=== PATIENT | male | born 1960 | race Caucasian/White ===

== ENCOUNTER → 2016-11-09 | Outpatient (CLI) | payer OTHER ==
[~2016-11-09] MED LIST: CLEOCIN300 MG PO
== END | disposition home or self-care (01) ==
LOC: RAD 09:18
DX: M17.0 Bilateral primary osteoarthritis of knee (principal); M11.262 Other chondrocalcinosis, left knee; M11.261 Other chondrocalcinosis, right knee
CPT/HCPCS: 72100; 73560

== ENCOUNTER 2017-01-19 08:08 | Emergency (ER) | payer OTHER ==
[~2017-01-19] VITALS: Ht 162.6 cm; Wt 93.3 kg
[2017-01-19 08:42] LABS: ADD MIUA? YES; BILIRUBIN NEGATIVE; BLOOD LARGE; COLOR YELLOW ((YELLOW)); GLUCOSE (STRIP) >=500; KETONES NEGATIVE; LEUKOCYTES NEGATIVE; NITRITE NEGATIVE; PROTEIN (STRIP) 30; SPECIFIC GRAVITY 1.012 (1.000-1.030); UROBILINOGEN 0.2 MG/DL (0.2-1.0)
[2017-01-19 08:56] LABS: HEMATOCRIT 37.2 % (38.0-50.0); MCH 30.2 PG (29.0-34.0); MEAN PLAT.VOLUME 10.9 uM^3 (9.0-12.4); PLATELET COUNT 184 K/uL (156-360); RBC DIS.WIDTH-CV 12.3 % (11.8-14.6); RBC DIS.WIDTH-SD 37.8 % (39-53); RED BLOOD COUNT 4.43 M/uL (4.00-5.50); WHITE BLOOD COUNT 7.1 K/uL (4.1-10.2)
[2017-01-19 09:05] LABS: BACTERIA RARE /HPF; EPITHELIAL CELLS NONE SEEN /HPF; HYALINE CASTS 0-5 /LPF; MUCUS TRACE /LPF; RED BLOOD CELLS TNTC /HPF (0-5); UCUL ADDED? YES; WHITE BLOOD CELLS 0-5 /HPF (0-5)
[2017-01-19 09:07] LABS: CHLORIDE 104 mEq/L (99-109); POTASSIUM 4.3 mEq/L (3.7-5.4); SODIUM 138 mEq/L (136-147)
[2017-01-19 09:09] LABS: GLUCOSE 246 mg/dL (70-99)
[2017-01-19 09:10] LABS: ANION GAP 11 MEQ/L (2-14)
[2017-01-19 09:11] LABS: TOTAL BILIRUBIN 0.4 mg/dL (0.0-1.0)
[2017-01-19 09:12] LABS: ALKALINE PHOSPHATASE 64 IU/L (3-129)
[2017-01-19 09:13] LABS: GFR ESTIMATE (CALCULATED) 55 mL/min/ (58.99-99999)
[2017-01-19 09:14] LABS: UREA NITROGEN (BUN) 16 mg/dL (9-23)
[2017-01-19 10:25] VITALS: BP 150/98
== END 2017-01-19 10:27 | disposition home or self-care (01) ==
LOC: EME → EDBD 08:08 → EME 08:08
PROVIDERS: Nurse Practitioner Family
DX: N20.0 Calculus of kidney (principal); N28.1 Cyst of kidney, acquired; I10 Essential (primary) hypertension; E78.5 Hyperlipidemia, unspecified; E11.9 Type 2 diabetes mellitus without complications; K21.9 Gastro-esophageal reflux disease without esophagitis; F41.9 Anxiety disorder, unspecified; Z88.0 Allergy status to penicillin
CPT/HCPCS: 74176; 80053; 81003; 85027; 87086; 99281; 99285; J3010

== ENCOUNTER 2017-03-23 14:30 | Emergency (ER) | payer OTHER ==
[~2017-03-23] VITALS: Ht 162.6 cm; Wt 96.3 kg
[2017-03-23 15:12] LABS: HEMATOCRIT 39.2 % (38.0-50.0); HEMOGLOBIN 14.4 G/DL (12.5-16.6); MCH 30.4 PG (29.0-34.0); MCHC 36.7 G/DL (30.0-36.0); MCV 82.7 FL (86-99); PLATELET COUNT 197 K/uL (156-360); RBC DIS.WIDTH-CV 12.3 % (11.8-14.6); RED BLOOD COUNT 4.74 M/uL (4.00-5.50)
[2017-03-23 15:14] LABS: APPEARANCE CLOUDY ((CLEAR)); BILIRUBIN NEGATIVE; BLOOD LARGE; COLOR YELLOW ((YELLOW)); GLUCOSE (STRIP) NEGATIVE; KETONES NEGATIVE; LEUKOCYTES NEGATIVE; NITRITE NEGATIVE; PROTEIN (STRIP) 30; SPECIFIC GRAVITY 1.024 (1.000-1.030); UROBILINOGEN 0.2 MG/DL (0.2-1.0)
[2017-03-23 15:33] LABS: ALBUMIN 4.3 g/dL (3.2-4.8); CHLORIDE 106 mEq/L (99-109); POTASSIUM 4.2 mEq/L (3.7-5.4); SODIUM 135 mEq/L (136-147)
[2017-03-23 15:36] LABS: BACTERIA RARE /HPF; EPITHELIAL CELLS RARE /HPF; HYALINE CASTS 0-5 /LPF; MUCUS 1+ /LPF; RED BLOOD CELLS TNTC /HPF (0-5); UCUL ADDED? YES; URIC ACID CRYSTALS 4+ /HPF; WHITE BLOOD CELLS NONE SEEN /HPF (0-5)
[2017-03-23 15:36] LABS: GLUCOSE 118 mg/dL (70-99); TOTAL PROTEIN 7.6 g/dL (6.4-8.3)
[2017-03-23 15:38] LABS: TOTAL BILIRUBIN 0.6 mg/dL (0.0-1.0)
[2017-03-23 15:39] LABS: ALKALINE PHOSPHATASE 72 IU/L (3-129); CREATININE 1.7 mg/dL (0.6-1.3); GFR ESTIMATE (CALCULATED) 44 mL/min/ (58.99-99999)
[2017-03-23 15:40] LABS: UREA NITROGEN (BUN) 29 mg/dL (9-23)
[2017-03-23 15:41] LABS: AST (GOT) 18 IU/L (2-34)
[2017-03-23 15:42] LABS: ALT (GPT) 32 IU/L (3-49)
[2017-03-23] MEDS ORDERED: PERCOCET 5/31 TABLET PO (17:25)
[2017-03-23] MEDS ORDERED: FLOMAX0.4 MG PO (17:25)
[2017-03-23 18:17] VITALS: BP 140/94
[2017-03-25] MEDS ORDERED: COZAAR25 MG PO (10:34)
[2017-03-25] MEDS ORDERED: LOVASTATIN20 MG PO (10:35)
[2017-03-25] MEDS ORDERED: LOPID600 MG PO (10:35)
[2017-03-25] MEDS ORDERED: OMEGA 3 500 SO1 EACH PO (10:36)
== END 2017-03-23 18:18 | disposition home or self-care (01) ==
LOC: EME 14:30
PROVIDERS: Physician Assistant Medical
DX: N20.0 Calculus of kidney (principal); C64.1 Malignant neoplasm of right kidney, except renal pelvis; E11.9 Type 2 diabetes mellitus without complications; I10 Essential (primary) hypertension; E78.5 Hyperlipidemia, unspecified; K21.9 Gastro-esophageal reflux disease without esophagitis; F41.9 Anxiety disorder, unspecified; Z87.442 Personal history of urinary calculi; Z88.0 Allergy status to penicillin
CPT/HCPCS: 74176; 80053; 81003; 85027; 87086; J2270; J7030

== ENCOUNTER 2017-03-27 21:44 | Inpatient (IN) | payer OTHER ==
[~2017-03-27] VITALS: Ht 162.6 cm; Wt 98.0 kg
[~2017-03-27 21:44] MED LIST changes: +COZAAR25 MG PO; +FLOMAX0.4 MG PO; +LOPID600 MG PO; +LOVASTATIN20 MG PO; +OMEGA 3 500 SO1 EACH PO; +PERCOCET 5/31 TABLET PO
[2017-03-28 07:11] VITALS: BP 138/83
[2017-03-28 12:56] VITALS: BP 132/68
[2017-03-28 14:18] LABS: HEMATOCRIT 37.1 % (38.0-50.0); HEMOGLOBIN 12.9 G/DL (12.5-16.6); MCH 29.3 PG (29.0-34.0); MCHC 34.8 G/DL (30.0-36.0); MCV 84.1 FL (86-99); PLATELET COUNT 225 K/uL (156-360); RBC DIS.WIDTH-CV 12.3 % (11.8-14.6); RBC DIS.WIDTH-SD 37.4 % (39-53); RED BLOOD COUNT 4.41 M/uL (4.00-5.50); WHITE BLOOD COUNT 12.8 K/uL (4.1-10.2)
[2017-03-28 14:40] LABS: CHLORIDE 102 MEQ/L (99-109); CREATININE 1.6 MG/DL (0.6-1.3); GFR ESTIMATE (CALCULATED) 47 mL/min/ (58.99-99999); GLUCOSE 177 mg/dL (70-99); POTASSIUM 4.3 MEQ/L (3.7-5.4); SODIUM 134 MEQ/L (136-147); UREA NITROGEN (BUN) 19 mg/dL (9-23)
[2017-03-28 16:03] VITALS: BP 136/74
[2017-03-28 20:12] VITALS: BP 149/87
[2017-03-29] VITALS (7 sets, daily range): BP systolic 125–169; BP diastolic 84–97
[2017-03-29 06:52] LABS: HEMATOCRIT 36.7 % (38.0-50.0); HEMOGLOBIN 12.9 G/DL (12.5-16.6); MCH 29.7 PG (29.0-34.0); MCHC 35.1 G/DL (30.0-36.0); MCV 84.6 FL (86-99); PLATELET COUNT 214 K/uL (156-360); RBC DIS.WIDTH-CV 12.4 % (11.8-14.6); RBC DIS.WIDTH-SD 37.7 % (39-53); RED BLOOD COUNT 4.34 M/uL (4.00-5.50); WHITE BLOOD COUNT 10.3 K/uL (4.1-10.2)
[2017-03-29 07:14] LABS: CHLORIDE 101 MEQ/L (99-109); GFR ESTIMATE (CALCULATED) 35 mL/min/ (58.99-99999); GLUCOSE 155 mg/dL (70-99); POTASSIUM 4.4 MEQ/L (3.7-5.4); SODIUM 136 MEQ/L (136-147); UREA NITROGEN (BUN) 20 mg/dL (9-23)
[2017-03-29 07:26] LABS: CREATININE 2.1 MG/DL (0.6-1.3)
[2017-03-30 04:04] VITALS: BP 125/80
[2017-03-30 06:20] LABS: CHLORIDE 100 MEQ/L (99-109); POTASSIUM 4.3 MEQ/L (3.7-5.4); SODIUM 135 MEQ/L (136-147)
[2017-03-30 06:26] LABS: CREATININE 2.2 MG/DL (0.6-1.3); GFR ESTIMATE (CALCULATED) 33 mL/min/ (58.99-99999); GLUCOSE 145 mg/dL (70-99); UREA NITROGEN (BUN) 18 mg/dL (9-23)
[2017-03-30 07:15] VITALS: BP 133/86
[2017-03-30 11:28] VITALS: BP 117/84
[2017-03-30] MEDS ORDERED: DOCUSATE SODIU100 MG PO (11:55)
[2017-03-30] MEDS ORDERED: LOSARTAN POTASS25 MG PO (11:55)
[2017-03-30] MEDS ORDERED: ENDOCET 5-3251 EACH PO (11:55)
[2017-03-30 15:57] VITALS: BP 120/93
[2017-03-30 20:13] VITALS: BP 120/74
[2017-03-30 23:44] VITALS: BP 125/75
[2017-03-31 03:29] VITALS: BP 112/59
[2017-03-31 07:11] LABS: ALBUMIN 3.5 G/DL (3.2-4.8); CHLORIDE 99 MEQ/L (99-109); CREATININE 2.3 MG/DL (0.6-1.3); GFR ESTIMATE (CALCULATED) 31 mL/min/ (58.99-99999); GLUCOSE 158 mg/dL (70-99); PHOSPHORUS 3.4 mg/dL (2.5-4.9); POTASSIUM 4.2 MEQ/L (3.7-5.4); SODIUM 135 MEQ/L (136-147); UREA NITROGEN (BUN) 23 mg/dL (9-23)
[2017-03-31 07:20] VITALS: BP 124/71
[2017-03-31 11:46] VITALS: BP 118/74
== END 2017-03-31 14:22 | disposition home or self-care (01) | DRG 657 ==
LOC: 2SOUTH → ENRESERV 21:44 → 5EAST 03-28 06:09 → 2SOUTH 03-28 06:09 → ENRESERV 03-28 11:06 → 5EAST 03-28 12:33 → 2SOUTH 03-28 13:54 → ENPENDDIS 03-31 → 5EAST 03-31 14:22
PROVIDERS: Internal Medicine Nephrology; Urology
PROC: 0TT14ZZ Resection of Left Kidney, Percutaneous Endoscopic Approach (ICD-10-PCS; principal; 2017-03-28)
DX: C64.2 Malignant neoplasm of left kidney, except renal pelvis (principal); N17.9 Acute kidney failure, unspecified; E11.22 Type 2 diabetes mellitus with diabetic chronic kidney disease; N28.89 Other specified disorders of kidney and ureter; N20.1 Calculus of ureter; Z68.37 Body mass index [BMI] 37.0-37.9, adult; I12.9 Hypertensive chronic kidney disease with stage 1 through stage 4 chronic kidney disease, or unspecified chronic kidney disease; F41.9 Anxiety disorder, unspecified; Z87.442 Personal history of urinary calculi; Z85.528 Personal history of other malignant neoplasm of kidney; Z88.0 Allergy status to penicillin; N18.4 Chronic kidney disease, stage 4 (severe)
CPT/HCPCS: 36415; 80048; 80069; 85025; 85027; 86850; 86900; 86901; 88307; 88341 TC; 88342 TC; 93005; 94799; J0330; J0690; J1100; J1170; J1644; J2001; J2250; J2405; J3010; J3475; J7120

== ENCOUNTER 2017-08-07 14:16 | Emergency (ER) | payer OTHER ==
[~2017-08-07] VITALS: Ht 162.6 cm; Wt 90.0 kg
[~2017-08-07 14:16] MED LIST changes: +DOCUSATE SODIU100 MG PO; +ENDOCET 5-3251 EACH PO; +LOSARTAN POTASS25 MG PO
[2017-08-07 17:42] VITALS: BP 132/89
== END 2017-08-07 17:54 | disposition home or self-care (01) ==
LOC: EME 14:16
PROC: 0HQFXZZ Repair Right Hand Skin, External Approach (ICD-10-PCS; principal; 2017-08-07)
DX: S61.214A Laceration without foreign body of right ring finger without damage to nail, initial encounter (principal); W26.9XXA Contact with unspecified sharp object(s), initial encounter; Y93.G1 Activity, food preparation and clean up; E11.9 Type 2 diabetes mellitus without complications; E78.5 Hyperlipidemia, unspecified; I10 Essential (primary) hypertension; K21.9 Gastro-esophageal reflux disease without esophagitis; Z85.528 Personal history of other malignant neoplasm of kidney; F41.9 Anxiety disorder, unspecified; Z90.5 Acquired absence of kidney; Z88.0 Allergy status to penicillin
CPT/HCPCS: 99281; 99285